=== PATIENT | male | born 1970 | race Caucasian/White ===

== ENCOUNTER 2017-10-24 15:30 | Emergency (ER) | payer OTHER ==
[~2017-10-24] VITALS: Ht 172.7 cm; Wt 64.0 kg
[~2017-10-24 15:30] MED LIST: PERM5CRE TOP
[2017-10-24 15:31] VITALS: BP 122/82; PULSE 84; RESP 16; TEMP 97.6; O2SAT 99
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
[2017-10-24 17:48] VITALS: BP_SYST 113; BP_SYST 117; BP_SYST 119; BP_DIAS 73; BP_DIAS 80
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
== END 2017-10-24 19:23 | disposition home or self-care (01) ==
LOC: NEPD 15:30
DX: M54.5 Low back pain (principal); G89.29 Other chronic pain; F17.200 Nicotine dependence, unspecified, uncomplicated; S13.4XXA Sprain of ligaments of cervical spine, initial encounter; V43.53XA Car driver injured in collision with pick-up truck in traffic accident, initial encounter
CPT/HCPCS: 70450; 72072; 72100; 72125; 99284

== ENCOUNTER 2018-03-14 03:23 | Emergency (ER) | payer OTHER ==
[2018-03-14] MEDS ORDERED: LIDOCAINE VISCOUS 2% SOLN 15 ML UDC PO ONE (03:30)
[2018-03-14] MEDS ORDERED: ALUMINUM/MAGNESIUM/SIMETH 30 ML CUP PO ONE (03:30)
[2018-03-14] MEDS ORDERED: SODIUM CHLORIDE 0.9% FLUSH 10 ML FLUSH IV FLUSH PRN (03:30)
[2018-03-14 03:32] VITALS: BP 153/95; PULSE 89; RESP 18; TEMP 98.6; O2SAT 96
--- NOTE | 2018-03-14 04:35 | PD ---
HPI Chief Complaint: Psychiatric Symptoms Time Seen by Provider: 03:25 Travel History International Travel<30 days: No Contact w/Intl Traveler<30days: No History of Present Illness HPI Patient is a 47-year-old male presenting to the emergency department under Campbell act for psychiatric evaluation. Patient allegedly made suicidal statements via text to his girlfriend. Text message allegedly said he wanted to end it all. Patient states he was trying to break up with her. He states he loves his life and his animals and his son and would never hurt himself. He denies any drug use. He denies any excessive alcohol intake. He denies any previous suicide attempt. Patient states he was sleeping in his bed when the police came to his house. He has no physical complaints at this time. [facility] Past Medical History Diabetes: No Diminished Hearing: No Immune Disorder: No Social History Alcohol Use: No Tobacco Use: Yes (11/10 PPD) Substance Use: No Allergies-Medications (Allergen,Severity, Reaction): Coded Allergies: No Known Allergies (Verified , 09/25/14) Uncoded Allergies: PEANUT BUTTER (Allergy, Mild, SNEEZING, 09/12/06) Reported Meds & Prescriptions Reported Meds & Active Scripts Active No Active Prescriptions or Reported Medications Review of Systems Except as stated in HPI: all other systems reviewed are Neg Psychiatric: No: Suicidal Ideations, Substance Abuse, Homicidal Ideation Physical Exam Narrative GENERAL: Well-developed, well-nourished, alert male. Presenting in no acute distress. SKIN: Warm and dry. HEAD: Atraumatic. Normocephalic. EYES: Pupils equal and round. No scleral icterus. No injection or drainage. ENT: No nasal bleeding or discharge. Mucous membranes pink and moist. NECK: Trachea midline. No JVD. CARDIOVASCULAR: Regular rate and rhythm. RESPIRATORY: No accessory muscle use. Clear to auscultation. Breath sounds equal bilaterally. GASTROINTESTINAL: Abdomen soft, non-tender, nondistended. Hepatic and splenic margins not palpable. MUSCULOSKELETAL: Extremities without clubbing, cyanosis, or edema. No obvious deformities. NEUROLOGICAL: Awake and alert. No obvious cranial nerve deficits. Motor grossly within normal limits. Five out of 5 muscle strength in the arms and legs. Normal speech. PSYCHIATRIC: Appropriate mood and affect; insight and judgment normal. Data Data Last Documented VS Vital Signs Date Time Temp Pulse Resp B/P (MAP) Pulse Ox O2 Delivery O2 Flow Rate FiO2 03/14/18 03:32 98.6 89 18 153/95 (114) 96 Room Air Orders Orders Complete Blood Count With Diff (03/14/18 03:25) Comprehensive Metabolic Panel (03/14/18 03:25) Thyroid Stimulating Hormone (03/14/18 03:25) Psych Screen (03/14/18 03:25) Drug Screen, Random Urine (03/14/18 03:25) Alcohol (Ethanol) (03/14/18 03:25) Salicylates (Aspirin) (03/14/18 03:25) Tylenol (Acetaminophen) (03/14/18 03:25) Sodium Chloride 0.9% Flush (Ns Flush) (03/14/18 03:30) Al-Mag Hy-Si 40-40-4 Mg/Ml Liq (Mag-Al P (03/14/18 03:30) Lidocaine 2% Viscous (Xylocaine 2% Visco (03/14/18 03:30) MDM Medical Decision Making Medical Screen Exam Complete: Yes Emergency Medical Condition: Yes Interpretation(s) Vital Signs Date Time Temp Pulse Resp B/P (MAP) Pulse Ox O2 Delivery O2 Flow Rate FiO2 03/14/18 03:32 98.6 89 18 153/95 (114) 96 Room Air Differential Diagnosis Mood disorder versus substance abuse versus suicidal ideation versus other Narrative Course Patient is a 47-year-old male presenting to the emergency department under a Campbell act for psychiatric evaluation. Patient's vital signs are stable. Mental health screening discussed with the patient. Psychiatric screen ordered. Patient refused to have labs drawn. Patient complained of indigestion, he reports this is a chronic issue. He was given a GI cocktail. Patient is resting comfortably. Patient is medically cleared for psychiatric evaluation Diagnosis Primary Impression: Medical clearance for psychiatric admission Scripts No Active Prescriptions or Reported Meds Condition: Stable Mimi Mckenna March 14, 2018 04:35
--- NOTE | 2018-03-14 09:01 | PD ---
Data Data Last Documented VS Vital Signs Date Time Temp Pulse Resp B/P (MAP) Pulse Ox O2 Delivery O2 Flow Rate FiO2 03/14/18 03:32 98.6 89 18 153/95 (114) 96 Room Air Orders Orders Complete Blood Count With Diff (03/14/18 03:25) Comprehensive Metabolic Panel (03/14/18 03:25) Thyroid Stimulating Hormone (03/14/18 03:25) Psych Screen (03/14/18 03:25) Drug Screen, Random Urine (03/14/18 03:25) Alcohol (Ethanol) (03/14/18 03:25) Salicylates (Aspirin) (03/14/18 03:25) Tylenol (Acetaminophen) (03/14/18 03:25) Sodium Chloride 0.9% Flush (Ns Flush) (03/14/18 03:30) Al-Mag Hy-Si 40-40-4 Mg/Ml Liq (Mag-Al P (03/14/18 03:30) Lidocaine 2% Viscous (Xylocaine 2% Visco (03/14/18 03:30) Diet Regular Basic (03/14/18 Breakfast) MDM Medical Record Reviewed: Yes Supervised Visit with LOYD: Yes Narrative Course Patient is a 47-year-old male who presents the emergency room under a Campbell act. Patient was brought under Campbell act for allegedly making a suicidal statement to his girlfriend, patient reports that he is not suicidal, he does not want any of his life, reports that he is anxious to go home to his 3 kittens and his dog. Reports that he wanted to break up with his girlfriend and she in turn called police stating that he was going to kill himself. She was just upset that he broke up with her. Patient has no complaints at this time and reports "I want to live until I'm 89 years old and I have no intentions of hurting myself." Patient seen by mental health provider, patient adamantly denies si/hi, patient' s campbell act will be lifted and he will follow up with his pcp Diagnosis Primary Impression: Medical clearance for psychiatric admission Additional Impression: Adjustment disorder Patient Instructions: General Instructions Additional Instruction: Please follow up with your mental health providers Please follow up with your primary care doctor in 2-3 days Return to the ER if symptoms worsen or progress Return to the ER as needed Scripts No Active Prescriptions or Reported Meds Disposition: 01 DISCHARGE HOME Condition: Stable Micaela Crawley DO March 14, 2018 09:01
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
== END 2018-03-14 09:11 | disposition home or self-care (01) ==
LOC: NEPD 03:23
DX: F43.20 Adjustment disorder, unspecified (principal); F17.200 Nicotine dependence, unspecified, uncomplicated
CPT/HCPCS: 99283